=== PATIENT | male | born 1955 | race Caucasian/White ===

== ENCOUNTER 2019-10-17 13:58 | Inpatient (IN) | payer OTHER ==
[~2019-10-17] VITALS: Ht 182.9 cm; Wt 127.0 kg
[2019-10-17 14:05] VITALS: Ht 182.9 cm; Wt 127.0 kg
[2019-10-17 15:05] LABS: BASOPHIL % 0.6 % (0-2); PLATELET COUNT 182 x10^3mcL (130-400)
[2019-10-17 15:06] LABS: RED CELL DISTRIBUTION WIDTH 14.7 % (11.5-14.5)
[2019-10-17 15:21] LABS: CALCIUM 9.1 mg/dL (8.5-10.1); CARBON DIOXIDE 25.8 mmol/L (21-32); CHLORIDE SERUM 103 mmol/L (98-107); CREATININE SERUM 0.8 mg/dL (0.7-1.3); GFR1 > 60 mL/min; GLUCOSE SERUM 95 mg/dL (74-106); POTASSIUM SERUM 3.7 mmol/L (3.5-5.1); SODIUM SERUM 139 mmol/L (136-145)
[2019-10-17 15:26] LABS: ALBUMIN 3.6 g/dL (3.4-5.0); ALKALINE PHOSPHATASE 70 U/L (46-116); ALT/SGPT 46 U/L (16-63); AST/SGOT 39 U/L (15-37); BILIRUBIN TOTAL 1.3 mg/dL (0.20-1.00); TOTAL PROTEIN, SERUM 7.3 g/dL (6.4-8.2)
[2019-10-17 16:09] LABS: microscopic required? NO; urine erythrocyte NEGATIVE (NEGATIVE)
[2019-10-17 17:51] LABS: AMPHETAMINE QUAL UR NONE DETECTED (See below)
[2019-10-17 18:53] LABS: CHOLESTEROL/HDL RATIO 6.2
[2019-10-17] MEDS ORDERED: NAPROSYN500 MG PO (18:55)
[2019-10-17] MEDS ORDERED: MACRODANTIN100 M1 PO (18:56)
[2019-10-17 19:02] LABS: T3 TOTAL 1.08 ng/mL
[2019-10-17 19:21] LABS: FREE T4 1.32 ng/dL (0.76-1.46); FREE THYROXINE INDEX 2.9 ug/dL (1.4-4.5); T4(THYROXINE) 9.7 ug/dL (4.7-13.3)
[2019-10-17 21:28] VITALS: BP 114/67
[2019-10-18 05:10] VITALS: BP 126/79
[2019-10-18 07:17] LABS: CALCIUM 9.3 mg/dL (8.5-10.1); CARBON DIOXIDE 28.7 mmol/L (21-32); CHLORIDE SERUM 104 mmol/L (98-107); CREATININE SERUM 0.8 mg/dL (0.7-1.3); GFR1 > 60 mL/min; GLUCOSE SERUM 85 mg/dL (74-106); MAGNESIUM 2.2 mg/dL (1.8-2.4); PHOSPHOROUS 3.3 mg/dL (2.5-4.9); POTASSIUM SERUM 3.6 mmol/L (3.5-5.1); SODIUM SERUM 141 mmol/L (136-145)
[2019-10-18 08:08] LABS: BASOPHIL % 1.6 % (0-2); PLATELET COUNT 188 x10^3mcL (130-400); RED CELL DISTRIBUTION WIDTH 13.8 % (11.5-14.5)
[2019-10-18 18:11] VITALS: BP 105/63
[2019-10-18 20:44] VITALS: BP 111/73
[2019-10-19 05:22] VITALS: BP 113/62
[2019-10-19 07:01] LABS: BASOPHIL % 0.6 % (0-2); PLATELET COUNT 216 x10^3mcL (130-400)
[2019-10-19 07:20] LABS: CALCIUM 9.1 mg/dL (8.5-10.1); CARBON DIOXIDE 25.6 mmol/L (21-32); CHLORIDE SERUM 106 mmol/L (98-107); CREATININE SERUM 0.9 mg/dL (0.7-1.3); GFR1 > 60 mL/min; GLUCOSE SERUM 84 mg/dL (74-106); MAGNESIUM 2.2 mg/dL (1.8-2.4); PHOSPHOROUS 3.6 mg/dL (2.5-4.9); POTASSIUM SERUM 3.7 mmol/L (3.5-5.1); SODIUM SERUM 141 mmol/L (136-145)
[2019-10-19 19:19] VITALS: BP 131/82
[2019-10-19 20:46] VITALS: BP 141/84
[2019-10-20 05:51] VITALS: BP 116/63
[2019-10-20 06:36] LABS: CALCIUM 9.2 mg/dL (8.5-10.1); CARBON DIOXIDE 25.3 mmol/L (21-32); CHLORIDE SERUM 106 mmol/L (98-107); CREATININE SERUM 0.8 mg/dL (0.7-1.3); GFR1 > 60 mL/min; GLUCOSE SERUM 91 mg/dL (74-106); POTASSIUM SERUM 3.7 mmol/L (3.5-5.1); SODIUM SERUM 140 mmol/L (136-145)
[2019-10-20 06:48] LABS: BASOPHIL % 0.7 % (0-2); PLATELET COUNT 176 x10^3mcL (130-400); RED CELL DISTRIBUTION WIDTH 15.1 % (11.5-14.5)
[2019-10-20 09:18] VITALS: BP 125/64
[2019-10-20 16:23] VITALS: BP 114/72
[2019-10-20 20:20] VITALS: BP 121/83
[2019-10-21 06:22] VITALS: BP 137/99
[2019-10-21 08:28] LABS: CALCIUM 9.4 mg/dL (8.5-10.1); CARBON DIOXIDE 21.1 mmol/L (21-32); CHLORIDE SERUM 105 mmol/L (98-107); CREATININE SERUM 1.2 mg/dL (0.7-1.3); GFR1 > 60 mL/min; GLUCOSE SERUM 136 mg/dL (74-106); POTASSIUM SERUM 3.6 mmol/L (3.5-5.1); SODIUM SERUM 141 mmol/L (136-145)
[2019-10-21 08:37] LABS: BASOPHIL % 0.4 % (0-2); PLATELET COUNT 200 x10^3mcL (130-400)
[2019-10-21 08:49] VITALS: BP 114/78
[2019-10-21 13:50] VITALS: BP 148/73
[2019-10-21 17:38] VITALS: BP 132/87
[2019-10-22 02:35] VITALS: BP 132/87
[2019-10-22 06:30] VITALS: BP 145/91
[2019-10-22 06:42] LABS: CALCIUM 9.2 mg/dL (8.5-10.1); CARBON DIOXIDE 24.1 mmol/L (21-32); CREATININE SERUM 1.3 mg/dL (0.7-1.3); POTASSIUM SERUM 3.6 mmol/L (3.5-5.1)
[2019-10-22 07:06] LABS: BASOPHIL % 0.3 % (0-2); PLATELET COUNT 142 x10^3mcL (130-400)
[2019-10-22 07:08] LABS: RED CELL DISTRIBUTION WIDTH 15.1 % (11.5-14.5)
[2019-10-22 08:16] VITALS: BP 147/84
[2019-10-22 12:37] LABS: BILIRUBIN DIRECT 0.78 mg/dL (0.0-0.2); BILIRUBIN TOTAL 2.2 mg/dL (0.20-1.00); TOTAL PROTEIN, SERUM 7.2 g/dL (6.4-8.2)
[2019-10-22 12:39] LABS: ALBUMIN 3.2 g/dL (3.4-5.0)
[2019-10-22 16:50] LABS: MAGNESIUM 2.4 mg/dL (1.8-2.4); POTASSIUM SERUM 3.6 mmol/L (3.5-5.1)
[2019-10-22 17:21] VITALS: BP 149/77
[2019-10-22 20:09] VITALS: BP 123/77
[2019-10-23 04:06] LABS: RAPID PLASMA REAGIN Non Reactive (Non Reactive)
[2019-10-23 06:19] VITALS: BP 126/78
[2019-10-23 06:28] LABS: BASOPHIL % 0.3 % (0-2)
[2019-10-23 06:41] LABS: PLATELET COUNT 96 x10^3mcL (130-400); RED CELL DISTRIBUTION WIDTH 15.2 % (11.5-14.5)
[2019-10-23 06:44] LABS: CARBON DIOXIDE 25.5 mmol/L (21-32); CREATININE SERUM 1.4 mg/dL (0.7-1.3); POTASSIUM SERUM 3.4 mmol/L (3.5-5.1)
[2019-10-23 07:38] VITALS: BP 117/70
[2019-10-23 12:04] VITALS: BP 118/83
[2019-10-23 17:01] VITALS: BP 113/82
[2019-10-23 19:25] VITALS: BP 139/92
[2019-10-24 07:25] LABS: BASOPHIL % 0.6 % (0-2)
[2019-10-24 07:44] VITALS: BP 130/89
[2019-10-24 07:57] LABS: CALCIUM 9.1 mg/dL (8.5-10.1); CARBON DIOXIDE 27.1 mmol/L (21-32); CREATININE SERUM 1.4 mg/dL (0.7-1.3); MAGNESIUM 2.4 mg/dL (1.8-2.4); PHOSPHOROUS 4.4 mg/dL (2.5-4.9); POTASSIUM SERUM 3.3 mmol/L (3.5-5.1)
[2019-10-24 08:11] LABS: PLATELET COUNT 83 x10^3mcL (130-400); RED CELL DISTRIBUTION WIDTH 15.3 % (11.5-14.5)
[2019-10-24 13:30] VITALS: BP 145/94
[2019-10-24 17:06] VITALS: BP 139/79
[2019-10-24 19:30] VITALS: BP 142/91
[2019-10-25 05:52] VITALS: BP 135/83
[2019-10-25 08:29] VITALS: BP 137/82
[2019-10-25 08:57] LABS: CALCIUM 9.1 mg/dL (8.5-10.1); CARBON DIOXIDE 26.9 mmol/L (21-32); CREATININE SERUM 1.3 mg/dL (0.7-1.3); POTASSIUM SERUM 3.5 mmol/L (3.5-5.1)
[2019-10-25 09:01] LABS: BASOPHIL % 0.6 % (0-2)
[2019-10-25 09:39] LABS: PLATELET COUNT 99 x10^3mcL (130-400); RED CELL DISTRIBUTION WIDTH 15.3 % (11.5-14.5)
[2019-10-25 12:12] VITALS: BP 140/78
[2019-10-25 17:00] VITALS: BP 139/87
[2019-10-25 19:42] VITALS: BP 129/76
[2019-10-26 06:09] VITALS: BP 132/77
[2019-10-26 06:51] LABS: BASOPHIL % 0.8 % (0-2)
[2019-10-26 06:57] LABS: CALCIUM 8.7 mg/dL (8.5-10.1); CARBON DIOXIDE 29.1 mmol/L (21-32); CREATININE SERUM 1.4 mg/dL (0.7-1.3); POTASSIUM SERUM 3.4 mmol/L (3.5-5.1)
[2019-10-26 06:58] LABS: PLATELET COUNT 98 x10^3mcL (130-400); RED CELL DISTRIBUTION WIDTH 14.9 % (11.5-14.5)
[2019-10-26 08:47] VITALS: BP 139/85
[2019-10-26 12:20] VITALS: BP 114/71
[2019-10-26 16:33] VITALS: BP 144/87
[2019-10-26 20:26] VITALS: BP 160/89
[2019-10-27 05:21] VITALS: BP 148/92
[2019-10-27 06:38] LABS: BASOPHIL % 0.6 % (0-2)
[2019-10-27 06:46] LABS: PLATELET COUNT 113 x10^3mcL (130-400); RED CELL DISTRIBUTION WIDTH 15.1 % (11.5-14.5)
[2019-10-27 07:17] LABS: CALCIUM 9.4 mg/dL (8.5-10.1); CARBON DIOXIDE 30.9 mmol/L (21-32); CREATININE SERUM 1.4 mg/dL (0.7-1.3); MAGNESIUM 2.1 mg/dL (1.8-2.4); PHOSPHOROUS 4.1 mg/dL (2.5-4.9); POTASSIUM SERUM 3.1 mmol/L (3.5-5.1)
[2019-10-27 09:13] VITALS: BP 146/70
[2019-10-27 13:28] VITALS: BP 137/82
[2019-10-27 17:11] VITALS: BP 123/58
[2019-10-27 21:04] VITALS: BP 138/81
[2019-10-28 06:25] LABS: CALCIUM 9.5 mg/dL (8.5-10.1); CARBON DIOXIDE 29.9 mmol/L (21-32); CREATININE SERUM 1.3 mg/dL (0.7-1.3); MAGNESIUM 2.1 mg/dL (1.8-2.4); PHOSPHOROUS 4.5 mg/dL (2.5-4.9); POTASSIUM SERUM 3.3 mmol/L (3.5-5.1)
[2019-10-28 06:26] LABS: BILIRUBIN DIRECT 0.54 mg/dL (0.0-0.2); BILIRUBIN TOTAL 1.3 mg/dL (0.20-1.00); TOTAL PROTEIN, SERUM 7.2 g/dL (6.4-8.2)
[2019-10-28 06:35] LABS: BASOPHIL % 0.4 % (0-2); PLATELET COUNT 133 x10^3mcL (130-400)
[2019-10-28 06:51] LABS: RED CELL DISTRIBUTION WIDTH 14.6 % (11.5-14.5)
[2019-10-28 08:49] VITALS: BP 123/61
[2019-10-28 17:09] VITALS: BP 121/72
[2019-10-28 21:15] VITALS: BP 132/70
[2019-10-29 05:33] VITALS: BP 139/77
[2019-10-29 07:09] LABS: CALCIUM 9.5 mg/dL (8.5-10.1); CARBON DIOXIDE 30.9 mmol/L (21-32); CREATININE SERUM 1.4 mg/dL (0.7-1.3); MAGNESIUM 2.6 mg/dL (1.8-2.4); PHOSPHOROUS 4.3 mg/dL (2.5-4.9); POTASSIUM SERUM 3.4 mmol/L (3.5-5.1)
[2019-10-29 07:15] LABS: BASOPHIL % 0.6 % (0-2); PLATELET COUNT 143 x10^3mcL (130-400)
[2019-10-29 07:21] LABS: RED CELL DISTRIBUTION WIDTH 15.3 % (11.5-14.5)
[2019-10-29 08:57] VITALS: BP 147/80
[2019-10-29 12:54] VITALS: BP 150/82
[2019-10-29 17:25] VITALS: BP 122/83
[2019-10-29 20:23] VITALS: BP 123/82
[2019-10-30 04:11] VITALS: BP 135/85
[2019-10-30 06:45] LABS: BASOPHIL % 0.6 % (0-2); PLATELET COUNT 162 x10^3mcL (130-400)
[2019-10-30 06:50] LABS: RED CELL DISTRIBUTION WIDTH 15.1 % (11.5-14.5)
[2019-10-30 07:31] LABS: CALCIUM 9.6 mg/dL (8.5-10.1); CARBON DIOXIDE 32.1 mmol/L (21-32); CREATININE SERUM 1.3 mg/dL (0.7-1.3); MAGNESIUM 2.5 mg/dL (1.8-2.4); PHOSPHOROUS 4.5 mg/dL (2.5-4.9); POTASSIUM SERUM 4.1 mmol/L (3.5-5.1)
[2019-10-30 07:59] VITALS: BP 136/80
[2019-10-30 11:22] VITALS: BP 126/76
[2019-10-30 15:23] VITALS: BP 143/64
[2019-10-30 20:18] VITALS: BP 138/90
[2019-10-31 04:56] VITALS: BP 132/80
[2019-10-31 06:36] LABS: BASOPHIL % 0.9 % (0-2)
[2019-10-31 06:53] LABS: PLATELET COUNT 129 x10^3mcL (130-400)
[2019-10-31 07:26] LABS: CALCIUM 9.2 mg/dL (8.5-10.1); CARBON DIOXIDE 27.1 mmol/L (21-32); CREATININE SERUM 1.9 mg/dL (0.7-1.3); MAGNESIUM 2.3 mg/dL (1.8-2.4); PHOSPHOROUS 4.9 mg/dL (2.5-4.9); POTASSIUM SERUM 3.5 mmol/L (3.5-5.1)
[2019-10-31 09:49] VITALS: BP 126/73
[2019-10-31 18:36] VITALS: BP 138/76
[2019-10-31 20:28] VITALS: BP 133/75
[2019-11-01 04:43] VITALS: BP 121/81
[2019-11-01 07:02] LABS: BASOPHIL % 0.9 % (0-2); PLATELET COUNT 145 x10^3mcL (130-400)
[2019-11-01 07:15] LABS: RED CELL DISTRIBUTION WIDTH 15.1 % (11.5-14.5)
[2019-11-01 07:16] LABS: CALCIUM 9.6 mg/dL (8.5-10.1); CARBON DIOXIDE 31.6 mmol/L (21-32); CREATININE SERUM 1.3 mg/dL (0.7-1.3); MAGNESIUM 2.3 mg/dL (1.8-2.4); PHOSPHOROUS 4.2 mg/dL (2.5-4.9); POTASSIUM SERUM 3.6 mmol/L (3.5-5.1)
[2019-11-01 08:50] VITALS: BP 145/76
[2019-11-01 13:18] VITALS: BP 142/90
[2019-11-01 16:27] VITALS: BP 147/98
[2019-11-01 21:07] VITALS: BP 126/81
[2019-11-02 05:49] VITALS: BP 148/92
[2019-11-02 06:23] LABS: BASOPHIL % 0.3 % (0-2); PLATELET COUNT 152 x10^3mcL (130-400)
[2019-11-02 06:34] LABS: RED CELL DISTRIBUTION WIDTH 15.7 % (11.5-14.5)
[2019-11-02 06:45] LABS: CALCIUM 9.2 mg/dL (8.5-10.1); CHLORIDE SERUM 109 mmol/L (98-107); CREATININE SERUM 1.2 mg/dL (0.7-1.3); GFR1 > 60 mL/min; GLUCOSE SERUM 115 mg/dL (74-106); MAGNESIUM 2.1 mg/dL (1.8-2.4); PHOSPHOROUS 4.3 mg/dL (2.5-4.9); POTASSIUM SERUM 3.8 mmol/L (3.5-5.1); SODIUM SERUM 149 mmol/L (136-145)
[2019-11-02 08:33] VITALS: BP 129/83
[2019-11-02 11:15] VITALS: BP 126/79
[2019-11-02 13:26] VITALS: BP 126/79
[2019-11-02 16:12] VITALS: BP 124/82
[2019-11-02 19:30] VITALS: BP 128/76
[2019-11-03 05:21] VITALS: BP 125/85
[2019-11-03 06:36] LABS: BASOPHIL % 0.4 % (0-2); PLATELET COUNT 167 x10^3mcL (130-400)
[2019-11-03 06:52] LABS: CALCIUM 8.3 mg/dL (8.5-10.1); CARBON DIOXIDE 31.1 mmol/L (21-32); CHLORIDE SERUM 106 mmol/L (98-107); CREATININE SERUM 1.2 mg/dL (0.7-1.3); GFR1 > 60 mL/min; GLUCOSE SERUM 108 mg/dL (74-106); PHOSPHOROUS 3.7 mg/dL (2.5-4.9); POTASSIUM SERUM 3.3 mmol/L (3.5-5.1); SODIUM SERUM 145 mmol/L (136-145)
[2019-11-03 06:56] LABS: RED CELL DISTRIBUTION WIDTH 15.9 % (11.5-14.5)
[2019-11-03 08:37] VITALS: BP 119/75
[2019-11-03 12:09] VITALS: BP 117/78
[2019-11-03 16:11] VITALS: BP 143/70
[2019-11-03 20:47] VITALS: BP 115/66
[2019-11-04 06:04] VITALS: BP 130/67; BP 136/64
[2019-11-04 06:31] LABS: CALCIUM 9.1 mg/dL (8.5-10.1); CARBON DIOXIDE 31.7 mmol/L (21-32); CHLORIDE SERUM 104 mmol/L (98-107); GFR1 > 60 mL/min; GLUCOSE SERUM 115 mg/dL (74-106); POTASSIUM SERUM 3.7 mmol/L (3.5-5.1); SODIUM SERUM 140 mmol/L (136-145)
[2019-11-04 08:22] VITALS: BP 128/70
[2019-11-04 13:54] VITALS: BP 128/87
[2019-11-04 17:18] VITALS: BP 111/73
[2019-11-04 20:43] VITALS: BP 108/69
[2019-11-05 05:42] VITALS: BP 117/77
[2019-11-05 06:28] LABS: BASOPHIL % 0.7 % (0-2); PLATELET COUNT 178 x10^3mcL (130-400)
[2019-11-05 06:36] LABS: RED CELL DISTRIBUTION WIDTH 15.8 % (11.5-14.5)
[2019-11-05 06:41] LABS: CALCIUM 8.4 mg/dL (8.5-10.1); CARBON DIOXIDE 28.9 mmol/L (21-32); CHLORIDE SERUM 103 mmol/L (98-107); GFR1 > 60 mL/min; GLUCOSE SERUM 102 mg/dL (74-106); POTASSIUM SERUM 3.4 mmol/L (3.5-5.1); SODIUM SERUM 139 mmol/L (136-145)
[2019-11-05 09:22] VITALS: BP 111/52
[2019-11-05 13:43] VITALS: BP 120/63
[2019-11-05 17:16] VITALS: BP 153/78
[2019-11-05 21:00] VITALS: BP 112/70
[2019-11-06 05:02] VITALS: BP 117/71
[2019-11-06 06:40] LABS: CALCIUM 8.4 mg/dL (8.5-10.1); CARBON DIOXIDE 27.8 mmol/L (21-32); CHLORIDE SERUM 101 mmol/L (98-107); CREATININE SERUM 0.9 mg/dL (0.7-1.3); GFR1 > 60 mL/min; GLUCOSE SERUM 109 mg/dL (74-106); POTASSIUM SERUM 4.1 mmol/L (3.5-5.1); SODIUM SERUM 137 mmol/L (136-145)
[2019-11-06 08:18] VITALS: BP 150/68
[2019-11-06 11:22] VITALS: BP 148/60
[2019-11-06 16:17] VITALS: BP 106/74
[2019-11-07 05:59] VITALS: BP 111/84
[2019-11-07 08:02] VITALS: BP 116/66
[2019-11-07 08:12] VITALS: BP 116/66
[2019-11-07 12:02] VITALS: BP 120/87
[2019-11-07 16:44] VITALS: BP 136/83
[2019-11-07 21:15] VITALS: BP 118/80
[2019-11-08 05:56] VITALS: BP 102/75
[2019-11-08 06:39] LABS: BASOPHIL % 1.1 % (0-2); PLATELET COUNT 240 x10^3mcL (130-400)
[2019-11-08 07:02] LABS: RED CELL DISTRIBUTION WIDTH 15.3 % (11.5-14.5)
[2019-11-08 07:19] LABS: CALCIUM 8.9 mg/dL (8.5-10.1); CARBON DIOXIDE 28.5 mmol/L (21-32); CHLORIDE SERUM 101 mmol/L (98-107); CREATININE SERUM 0.9 mg/dL (0.7-1.3); GFR1 > 60 mL/min; GLUCOSE SERUM 129 mg/dL (74-106); MAGNESIUM 2.3 mg/dL (1.8-2.4); PHOSPHOROUS 3.9 mg/dL (2.5-4.9); POTASSIUM SERUM 4.2 mmol/L (3.5-5.1); SODIUM SERUM 139 mmol/L (136-145)
[2019-11-08 07:55] VITALS: BP 117/73
[2019-11-08 11:28] VITALS: BP 114/75
[2019-11-08 16:20] VITALS: BP 127/57
[2019-11-08 20:07] VITALS: BP 129/86
[2019-11-09 05:30] VITALS: BP 120/73
[2019-11-09 08:05] LABS: BASOPHIL % 0.5 % (0-2); PLATELET COUNT 225 x10^3mcL (130-400)
[2019-11-09 08:13] LABS: RED CELL DISTRIBUTION WIDTH 15.4 % (11.5-14.5)
[2019-11-09 08:23] LABS: CALCIUM 8.8 mg/dL (8.5-10.1); CARBON DIOXIDE 30.7 mmol/L (21-32); CHLORIDE SERUM 102 mmol/L (98-107); GFR1 > 60 mL/min; GLUCOSE SERUM 127 mg/dL (74-106); MAGNESIUM 2.3 mg/dL (1.8-2.4); PHOSPHOROUS 3.8 mg/dL (2.5-4.9); POTASSIUM SERUM 4.1 mmol/L (3.5-5.1); SODIUM SERUM 139 mmol/L (136-145)
[2019-11-09 08:27] VITALS: BP 112/80
[2019-11-09 11:50] VITALS: BP 116/73
[2019-11-09 15:50] VITALS: BP 116/73
[2019-11-09 21:49] VITALS: BP 111/70
[2019-11-10 05:58] VITALS: BP 102/81
[2019-11-10 06:34] LABS: PLATELET COUNT 245 x10^3mcL (130-400)
[2019-11-10 06:47] LABS: CALCIUM 8.7 mg/dL (8.5-10.1); CARBON DIOXIDE 28.8 mmol/L (21-32); CHLORIDE SERUM 102 mmol/L (98-107); GFR1 > 60 mL/min; GLUCOSE SERUM 112 mg/dL (74-106); MAGNESIUM 2.2 mg/dL (1.8-2.4); PHOSPHOROUS 3.9 mg/dL (2.5-4.9); SODIUM SERUM 139 mmol/L (136-145)
[2019-11-10 06:59] LABS: RED CELL DISTRIBUTION WIDTH 15.4 % (11.5-14.5)
[2019-11-10 08:05] VITALS: BP 122/70
[2019-11-10 14:54] LABS: UA SPECIFIC GRAVITY 1.025 (1.005-1.035); microscopic required? YES; urine erythrocyte TRACE (NEGATIVE)
[2019-11-10 16:59] VITALS: BP 96/59
[2019-11-11 05:10] VITALS: BP 116/62
[2019-11-11 07:00] LABS: BASOPHIL % 1.1 % (0-2); PLATELET COUNT 229 x10^3mcL (130-400)
[2019-11-11 07:03] LABS: RED CELL DISTRIBUTION WIDTH 16.3 % (11.5-14.5)
[2019-11-11 07:07] LABS: CALCIUM 8.6 mg/dL (8.5-10.1); CARBON DIOXIDE 30.4 mmol/L (21-32); CHLORIDE SERUM 103 mmol/L (98-107); CREATININE SERUM 1.1 mg/dL (0.7-1.3); GFR1 > 60 mL/min; GLUCOSE SERUM 102 mg/dL (74-106); MAGNESIUM 2.3 mg/dL (1.8-2.4); SODIUM SERUM 140 mmol/L (136-145)
[2019-11-11 08:32] VITALS: BP 99/65
[2019-11-11 13:30] VITALS: BP 110/60
[2019-11-11 14:22] LABS: ALBUMIN 2.3 g/dL (3.4-5.0); BILIRUBIN DIRECT 0.63 mg/dL (0.0-0.2); BILIRUBIN TOTAL 1.4 mg/dL (0.20-1.00); TOTAL PROTEIN, SERUM 6.6 g/dL (6.4-8.2)
[2019-11-11 16:30] VITALS: BP 135/90
[2019-11-11 23:35] VITALS: BP 120/60
[2019-11-12 05:29] VITALS: BP 122/70
[2019-11-12 07:41] VITALS: BP 122/78
[2019-11-12 08:00] VITALS: BP 114/71
[2019-11-12 12:05] VITALS: BP 119/65
[2019-11-12 16:15] VITALS: BP 133/66
[2019-11-12 20:00] VITALS: BP 116/51
[2019-11-13 04:55] VITALS: BP 112/57
[2019-11-13 06:36] LABS: BASOPHIL % 0.5 % (0-2); PLATELET COUNT 252 x10^3mcL (130-400)
[2019-11-13 06:42] LABS: RED CELL DISTRIBUTION WIDTH 16.3 % (11.5-14.5)
[2019-11-13 07:03] LABS: CREATININE SERUM 1.6 mg/dL (0.7-1.3); MAGNESIUM 2.5 mg/dL (1.8-2.4); PHOSPHOROUS 3.7 mg/dL (2.5-4.9); POTASSIUM SERUM 4.4 mmol/L (3.5-5.1)
[2019-11-13 08:41] VITALS: BP 97/58
[2019-11-13 13:16] VITALS: BP 95/60
[2019-11-13 15:48] VITALS: BP 114/67
[2019-11-13 16:59] VITALS: BP 114/67
[2019-11-13 21:13] VITALS: BP 111/75
[2019-11-14 06:01] VITALS: BP 121/89
[2019-11-14 07:49] LABS: BASOPHIL % 0.6 % (0-2); PLATELET COUNT 221 x10^3mcL (130-400)
[2019-11-14 07:59] VITALS: BP 115/73
[2019-11-14 08:17] LABS: RED CELL DISTRIBUTION WIDTH 16.4 % (11.5-14.5)
[2019-11-14 11:11] LABS: CARBON DIOXIDE 27.5 mmol/L (21-32); POTASSIUM SERUM 4.3 mmol/L (3.5-5.1)
[2019-11-14 11:14] LABS: PHOSPHOROUS 5.1 mg/dL (2.5-4.9)
[2019-11-14 12:34] VITALS: BP 100/69
[2019-11-14 17:11] VITALS: BP 128/78
[2019-11-14 21:49] VITALS: BP 105/60
[2019-11-15 05:34] VITALS: BP 144/101
[2019-11-15 06:16] LABS: BASOPHIL % 0.8 % (0-2); PLATELET COUNT 209 x10^3mcL (130-400)
[2019-11-15 06:32] LABS: RED CELL DISTRIBUTION WIDTH 17.1 % (11.5-14.5)
[2019-11-15 07:18] LABS: CALCIUM 8.6 mg/dL (8.5-10.1); CARBON DIOXIDE 27.8 mmol/L (21-32); CREATININE SERUM 2.1 mg/dL (0.7-1.3); MAGNESIUM 3.1 mg/dL (1.8-2.4); PHOSPHOROUS 4.8 mg/dL (2.5-4.9); POTASSIUM SERUM 4.1 mmol/L (3.5-5.1)
[2019-11-15 08:22] VITALS: BP 170/85
[2019-11-15 08:44] LABS: BILIRUBIN DIRECT 0.64 mg/dL (0.0-0.2); BILIRUBIN TOTAL 1.2 mg/dL (0.20-1.00); TOTAL PROTEIN, SERUM 6.9 g/dL (6.4-8.2)
[2019-11-15 08:46] LABS: ALBUMIN 2.3 g/dL (3.4-5.0)
[2019-11-15 12:16] VITALS: BP 145/68
[2019-11-15 16:44] VITALS: BP 118/80
[2019-11-15 17:57] LABS: microscopic required? YES; urine erythrocyte 2+ (NEGATIVE)
[2019-11-15 21:32] VITALS: BP 122/68
[2019-11-16 05:11] VITALS: BP 107/70
[2019-11-16 07:08] LABS: CALCIUM 8.9 mg/dL (8.5-10.1); CARBON DIOXIDE 29.3 mmol/L (21-32); CREATININE SERUM 1.5 mg/dL (0.7-1.3); MAGNESIUM 2.8 mg/dL (1.8-2.4); POTASSIUM SERUM 4.2 mmol/L (3.5-5.1)
[2019-11-16 07:26] LABS: BASOPHIL % 0.8 % (0-2); PLATELET COUNT 195 x10^3mcL (130-400)
[2019-11-16 07:32] LABS: RED CELL DISTRIBUTION WIDTH 18.9 % (11.5-14.5)
[2019-11-16 08:43] VITALS: BP 113/74
[2019-11-16 10:48] VITALS: BP 113/74
[2019-11-16 13:04] VITALS: BP 96/66
[2019-11-16 14:50] LABS: BASOPHIL % 0.7 % (0-2); PLATELET COUNT 204 x10^3mcL (130-400)
[2019-11-16 14:56] LABS: CALCIUM 8.5 mg/dL (8.5-10.1); CARBON DIOXIDE 31.2 mmol/L (21-32); CREATININE SERUM 1.4 mg/dL (0.7-1.3); POTASSIUM SERUM 4.2 mmol/L (3.5-5.1)
[2019-11-16 15:01] LABS: ALBUMIN 2.1 g/dL (3.4-5.0); RED CELL DISTRIBUTION WIDTH 17.6 % (11.5-14.5); TOTAL PROTEIN, SERUM 6.3 g/dL (6.4-8.2)
[2019-11-16 16:25] LABS: FREE THYROXINE INDEX 2.8 ug/dL (1.4-4.5); T3 TOTAL 0.59 ng/mL
[2019-11-16 16:46] VITALS: BP 120/81
[2019-11-16 21:05] VITALS: BP 120/73
[2019-11-17 05:52] VITALS: BP 102/63
[2019-11-17 06:33] LABS: PLATELET COUNT 199 x10^3mcL (130-400)
[2019-11-17 06:46] LABS: RED CELL DISTRIBUTION WIDTH 18.3 % (11.5-14.5)
[2019-11-17 06:49] LABS: CALCIUM 8.9 mg/dL (8.5-10.1); CARBON DIOXIDE 28.4 mmol/L (21-32); CHLORIDE SERUM 110 mmol/L (98-107); CREATININE SERUM 1.1 mg/dL (0.7-1.3); GFR1 > 60 mL/min; GLUCOSE SERUM 98 mg/dL (74-106); MAGNESIUM 2.3 mg/dL (1.8-2.4); PHOSPHOROUS 3.7 mg/dL (2.5-4.9); POTASSIUM SERUM 4.1 mmol/L (3.5-5.1); SODIUM SERUM 144 mmol/L (136-145)
[2019-11-17 08:10] VITALS: BP 104/65
[2019-11-17 08:16] VITALS: BP 116/73
[2019-11-17 09:43] LABS: BILIRUBIN DIRECT 0.48 mg/dL (0.0-0.2); BILIRUBIN TOTAL 0.98 mg/dL (0.20-1.00); TOTAL PROTEIN, SERUM 6.5 g/dL (6.4-8.2)
[2019-11-17 09:52] LABS: ALBUMIN 2.2 g/dL (3.4-5.0)
[2019-11-17 12:06] VITALS: BP 113/75
[2019-11-17 16:14] VITALS: BP 110/69
[2019-11-17 21:00] VITALS: BP 117/76
[2019-11-18 05:55] VITALS: BP 118/76
[2019-11-18 06:56] LABS: BASOPHIL % 0.9 % (0-2); PLATELET COUNT 206 x10^3mcL (130-400)
[2019-11-18 07:19] LABS: RED CELL DISTRIBUTION WIDTH 18.2 % (11.5-14.5)
[2019-11-18 07:29] LABS: CALCIUM 9.1 mg/dL (8.5-10.1); CARBON DIOXIDE 26.2 mmol/L (21-32); CHLORIDE SERUM 107 mmol/L (98-107); CREATININE SERUM 0.8 mg/dL (0.7-1.3); GFR1 > 60 mL/min; GLUCOSE SERUM 101 mg/dL (74-106); MAGNESIUM 1.8 mg/dL (1.8-2.4); PHOSPHOROUS 3.6 mg/dL (2.5-4.9); SODIUM SERUM 142 mmol/L (136-145)
== END 2019-11-18 07:45 | disposition short-term general hospital (02) | DRG 94 ==
LOC: ED 13:58 → MU 18:25 → DU 18:25 → MU 20:13 → DU 10-18 16:27 → MU 10-31 02:53 → DU 10-31 17:55 → MU 11-10 19:57 → DU 11-16 09:59 → MU 11-17 12:28 → DU 11-17 17:28
PROVIDERS: Emergency Medicine; Family Medicine; Internal Medicine; ADMIT Student in an Organized Health Care Education/Training Program; ATTEND Student in an Organized Health Care Education/Training Program
PROC: 00JU3ZZ Inspection of Spinal Canal, Percutaneous Approach (ICD-10-PCS; principal; 2019-10-21)
PROC: 00JU3ZZ Inspection of Spinal Canal, Percutaneous Approach (ICD-10-PCS; 2019-10-27)
DX: G00.9 Bacterial meningitis, unspecified (principal); J69.0 Pneumonitis due to inhalation of food and vomit; N17.0 Acute kidney failure with tubular necrosis; E87.0 Hyperosmolality and hypernatremia; G93.49 Other encephalopathy; Z20.828 Contact with and (suspected) exposure to other viral communicable diseases; Z82.49 Family history of ischemic heart disease and other diseases of the circulatory system; E80.6 Other disorders of bilirubin metabolism; F29 Unspecified psychosis not due to a substance or known physiological condition; E86.0 Dehydration; R00.0 Tachycardia, unspecified; E87.6 Hypokalemia; R33.9 Retention of urine, unspecified; D64.9 Anemia, unspecified; E83.41 Hypermagnesemia
CPT/HCPCS: 36600; 62272; 82962; 83880; 84425; 84439; 86788; 86789; 92526-GN; 92610-GN; 97110-GP; 97112-GP; 97530-GP; A9577; G0378; J0133; J0295; J0696; J1630; J1644; J1953; J2001; J2060; J2405; J2543; J3370; J3411; J3475; J3480; J3490; J7030; J7042; J8597; Q0092; Q0163; Q9967; U0003-CS